=== PATIENT | male | born 1990 | race African-American/Black ===

== ENCOUNTER 2017-01-03 02:25 | Emergency (ER) | payer OTHER ==
[~2017-01-03] VITALS: Ht 185.4 cm; Wt 68.0 kg
[2017-01-03] MEDS ORDERED: NOHOMEMEDICATIONS (02:40)
[2017-01-03] MEDS ORDERED: NAPROSYN500 MG PO (03:14)
[2017-01-03] MEDS ORDERED: PENICILLIN V P500 MG PO (03:14)
[2017-01-03] MEDS ORDERED: TRAMADOL 50 MG50 MG PO (03:14)
[2017-01-03 03:32] VITALS: BP 129/87
== END 2017-01-03 03:34 | disposition home or self-care (01) ==
LOC: ER 02:25
DX: M26.601 Right temporomandibular joint disorder, unspecified (principal); K02.9 Dental caries, unspecified; F17.210 Nicotine dependence, cigarettes, uncomplicated; F10.99 Alcohol use, unspecified with unspecified alcohol-induced disorder

== ENCOUNTER 2018-10-16 17:51 | Emergency (ER) | payer OTHER ==
[~2018-10-16] VITALS: Ht 182.9 cm; Wt 68.0 kg
[~2018-10-16 17:51] MED LIST: NAPROSYN500 MG PO; NOHOMEMEDICATIONS; PENICILLIN V P500 MG PO; TRAMADOL 50 MG50 MG PO
[2018-10-16 18:25] LABS: HEMOGLOBIN 14.3 gm/dL (14.0-18.0); MCH 31.9 pg (26.0-34.0); MCHC 34.2 g/dL (28.0-37.0); MCV 93.3 fL (80.0-100.0); RBC 4.5 mil/uL (4.50-6.00); RDW 13.9 % (10.5-14.5); WBC 20.2 thou/uL (4.0-11.0)
[2018-10-16 18:40] LABS: CALCIUM 9.2 mg/dL (8.5-10.1); CREATININE 1.6 mg/dL (0.7-1.3); POTASSIUM 3.8 mmol/L (3.5-5.1)
[2018-10-16] MEDS ORDERED: AMOXICILLIN 50500 M1 PO (21:01)
[2018-10-16 21:35] VITALS: BP 111/66
== END 2018-10-16 21:35 | disposition home or self-care (01) ==
LOC: ER 17:51
PROVIDERS: Emergency Medicine
DX: J02.0 Streptococcal pharyngitis (principal); F17.210 Nicotine dependence, cigarettes, uncomplicated